=== PATIENT | female | born 1960 | race Caucasian/White ===

== ENCOUNTER 2016-11-10 07:09 | Day surgery (SDC) | payer OTHER ==
[~2016-11-10] VITALS: Ht 165.1 cm; Wt 84.3 kg
[~2016-11-10 07:09] MED LIST: ATEN25TA PO; FLUO10TA PO; GABA300C10 PO; HYDR12.53 PO; INSU100C5 SQ-INSULIN; INSU100V8 SQ; LIDO700A5 TD; LISI-170 PO; METH-356 PO; METH12VI2 SQ; OXYC5TAB3 PO; SENN1TAB7 PO; TRAZ50TA18 PO
[2016-11-10 07:36] VITALS: BP 167/91
[2016-11-10] MEDS ORDERED: SODIUM CHLORIDE 0.9% 1,000 ML IV SCH (07:38)
[2016-11-10] MEDS ORDERED: INSULIN REGULAR 100 UNITS/ML, 3ML VIAL SQ-INSULIN STA (08:05)
[2016-11-10] MEDS ORDERED: INSULIN SINGLE DOSE, ER SQ-INSULIN ONE (08:09)
[2016-11-10] MEDS ORDERED: LIDOCAINE 1%, 20ML ONE (08:19)
[2016-11-10] MEDS ORDERED: FENTANYL PF 100 MCG/2ML ONE (08:41)
[2016-11-10] MEDS ORDERED: FLUMAZENIL 0.1 MG/1 ML, 5ML ONE (08:42)
[2016-11-10] MEDS ORDERED: MIDAZOLAM 1 MG/ML, 5ML ONE (08:42)
[2016-11-10] MEDS ORDERED: NALOXONE 1 MG/ML, 2ML ONE (08:42)
== END 2016-11-10 12:00 ==
LOC: OUT 07:09
PROVIDERS: ATTEND Internal Medicine Nephrology
DX: E11.22 Type 2 diabetes mellitus with diabetic chronic kidney disease (principal); N18.9 Chronic kidney disease, unspecified; N28.89 Other specified disorders of kidney and ureter; I12.9 Hypertensive chronic kidney disease with stage 1 through stage 4 chronic kidney disease, or unspecified chronic kidney disease; Z88.0 Allergy status to penicillin; Z88.8 Allergy status to other drugs, medicaments and biological substances; E89.0 Postprocedural hypothyroidism; Z90.710 Acquired absence of both cervix and uterus; Z98.890 Other specified postprocedural states
CPT/HCPCS: 36415; 50200; 77012; 82962; 85610; 88300; 99156; J2250; J3010; J3490; J7030; 99157; J2310

== ENCOUNTER → 2017-07-20 | Outpatient (CLI) | payer OTHER | END | disposition home or self-care (01) | LOC: RAD 11:30 | PROVIDERS: ATTEND Specialist | DX: M25.511 Pain in right shoulder (principal) ==

== ENCOUNTER → 2020-06-15 | Outpatient (CLI) | payer MEDICARE ==
[~2020-06-15] MED LIST changes: +AMLO-150 PO; +CALC667T4 PO; +CARV-39 PO; +ERGO500017 PO; +GABA300C PO; +HYDR12.517 PO; -HYDR12.53 PO; +INSU100V13 SC; +LEVO50TA91 PO; -METH-356 PO; +METH10TA2 PO; +METO5TAB5 PO; -OXYC5TAB3 PO; +OXYC5TAB98 PO; +SENN-177 PO; -SENN1TAB7 PO; +TORS20TA2 PO; -TRAZ50TA18 PO; +TRAZ50TA66 PO
[2020-06-15 11:21] LABS: BASOPHILS % (AUTO) 0 % (0-1); EOSINOPHILS % (AUTO) 0 % (1-7); LYMPHOCYTES % (AUTO) 21 % (22-44); MEAN CORPUSCULAR HGB CONC 33.3 g/dL (32.4-35.8); MEAN PLATELET VOLUME 8.5 fL (7.4-10.4); MONOCYTES % (AUTO) 5 % (2-9); NEUTROPHILS % (AUTO) 74 % (42-75); PLATELET COUNT 318 x10^3/uL (130-400); RED BLOOD COUNT 4.01 x10^6/uL (3.82-5.3); RED CELL DISTRIBUTION WIDTH 14.2 % (9.6-15.2)
[2020-06-15 11:31] LABS: MD NO
[2020-06-15 11:32] LABS: ALBUMIN 3.4 g/dL (3.4-5.0); ANION GAP 4 mmol/L (5-15); CALCIUM 8.5 mg/dL (8.5-10.1); CHLORIDE 97 mmol/L (98-107)
[2020-06-15 11:34] LABS: INTERNATIONAL NORMALIZED RATIO 0.93 (0.93-1.1); PROTHROMBIN TIME 9.9 Seconds (9.6-11.5)
[2020-06-15 11:36] LABS: ALANINE AMINOTRANSFERASE 31 U/L (12-78); ALKALINE PHOSPHATASE 78 U/L (45-117); BILIRUBIN,TOTAL 0.4 mg/dL (0.2-1.0); CREATININE 3.44 mg/dL (0.55-1.02); TOTAL PROTEIN 7.1 g/dL (6.4-8.2)
== END | disposition home or self-care (01) ==
LOC: STAR 09:51
PROVIDERS: ATTEND Surgery
DX: Z01.818 Encounter for other preprocedural examination (principal); N18.6 End stage renal disease; I44.4 Left anterior fascicular block; Z20.822 Contact with and (suspected) exposure to COVID-19
CPT/HCPCS: 36415; 80053; 85025; 85610; 85730; 93005; U0003; U0005

== ENCOUNTER 2020-06-20 15:23 | Day surgery (SDC) | payer MEDICAID, MEDICARE ==
[~2020-06-20] VITALS: Ht 162.6 cm; Wt 79.5 kg
[~2020-06-20 15:23] MED LIST changes: +EPHEDRINE 50 MG/ML, 1ML IVPush PRN; +FENTANYL PF 100 MCG/2ML IV PRN; +LABETALOL 5MG/ML, 20ML IV PRN; +ONDANSETRON 2MG/ML, 2ML IVPush PRN; +OXYcodone 5 MG/5 ML ORAL.SOL UDC PO PRN; +PROMETHAZINE 25 MG/ML, 1ML IVPush PRN; +hydrALAzine 20 MG/ML, 1ML IV PRN
[2020-06-20] MEDS ORDERED: PROTAMINE SULFATE 10 MG/ML, 25ML ONE (15:37)
[2020-06-20] MEDS ORDERED: HEPARIN 1,000 UNITS/ML, 10ML ONE (15:37)
[2020-06-20] MEDS ORDERED: THROMBIN 20,000 UNIT VIAL TP ONE (15:37)
[2020-06-20] MEDS ORDERED: BUPIVACAINE/PF 0.25% ONE (15:37)
[2020-06-20] MEDS ORDERED: EPINEPHRINE 1 MG/ML, 1ML ONE (15:37)
[2020-06-20] MEDS ORDERED: PAPAVERINE 30 MG/ML, 2ML ONE (15:37)
[2020-06-20] MEDS ORDERED: LIDOCAINE 1%, 20ML ONE (15:38)
[2020-06-20 15:39] VITALS: BP 125/90
[2020-06-20] MEDS ORDERED: SODIUM CHLORIDE 0.9% 1,000 ML IV SCH (16:00)
[2020-06-20] MEDS ORDERED: ACETAMINOPHEN 500 MG TABLET PO ONE (16:00)
[2020-06-20] MEDS ORDERED: CHLORHEXIDINE 15 ML UDC PO ONE (16:00)
[2020-06-20] MEDS ORDERED: LIDOCAINE-MPF 1%, 2ML ONE (16:02)
[2020-06-20] MEDS ORDERED: LIDOCAINE-MPF 1%, 2ML INFIL ONE (16:30)
[2020-06-20] MEDS ORDERED: DEXTROSE 50%, 50ML SYRINGE IVPush STA (17:03)
[2020-06-20] MEDS ORDERED: DEXTROSE 50%, 50ML SYRINGE ONE (17:07)
[2020-06-20] MEDS ORDERED: MIDAZOLAM 1 MG/ML, 2ML ONE (18:07)
[2020-06-20] MEDS ORDERED: FENTANYL PF 100 MCG/2ML ONE ×2 (18:07→19:42)
[2020-06-20] MEDS ORDERED: DEXAMETHASONE 4 MG/ML, 1ML ONE (18:35)
[2020-06-20] MEDS ORDERED: ONDANSETRON 2MG/ML, 2ML ONE (18:35)
[2020-06-20] MEDS ORDERED: CEFAZOLIN 1,000 MG ONE (18:35)
[2020-06-20] MEDS ORDERED: SODIUM CHLORIDE 0.9% PF 10ML ONE (18:35)
[2020-06-20] MEDS ORDERED: PROPOFOL 10 MG/ML, 20ML ONE (18:35)
[2020-06-20] MEDS ORDERED: LIDOCAINE-MPF 2% ,5ML ONE (18:35)
[2020-06-20] MEDS ORDERED: EPHEDRINE 50 MG/ML, 1ML ONE (18:42)
[2020-06-20] MEDS ORDERED: HYDR-2214 PO (19:37)
[2020-06-20] MEDS ORDERED: OXYcodone 5 MG/5 ML ORAL.SOL UDC ONE (19:42)
[2020-06-20] MEDS ORDERED: hydrALAzine 20 MG/ML, 1ML ONE (19:52)
[2020-06-20] MEDS ORDERED: HYDROmorphone 1 MG/ML, 1ML INJ ONE (20:02)
[2020-06-20] MEDS: HYDROmorphone 1 MG/ML, 1ML INJ IVPush PRN ×2 (20:05→20:15)
== END 2020-06-20 22:30 | disposition home or self-care (01) ==
LOC: OR 15:23
PROVIDERS: ATTEND Surgery
DX: E11.22 Type 2 diabetes mellitus with diabetic chronic kidney disease (principal); I12.0 Hypertensive chronic kidney disease with stage 5 chronic kidney disease or end stage renal disease; N18.6 End stage renal disease; E03.9 Hypothyroidism, unspecified; Z79.4 Long term (current) use of insulin; Z79.890 Hormone replacement therapy; Z79.899 Other long term (current) drug therapy; Z88.8 Allergy status to other drugs, medicaments and biological substances; Z87.891 Personal history of nicotine dependence; Z88.0 Allergy status to penicillin; Z88.5 Allergy status to narcotic agent; Z99.2 Dependence on renal dialysis; Z98.890 Other specified postprocedural states
CPT/HCPCS: 36832; 82962; J0360; J0690; J1100; J1170; J1644; J2250; J2405; J2704; J2720; J3010; J0171; J2440

== ENCOUNTER 2020-10-06 10:44 | Emergency (ER) | payer MEDICARE ==
[~2020-10-06 10:44] MED LIST changes: -EPHEDRINE 50 MG/ML, 1ML IVPush PRN; -FENTANYL PF 100 MCG/2ML IV PRN; +HYDR-2214 PO; -LABETALOL 5MG/ML, 20ML IV PRN; -ONDANSETRON 2MG/ML, 2ML IVPush PRN; -OXYcodone 5 MG/5 ML ORAL.SOL UDC PO PRN; -PROMETHAZINE 25 MG/ML, 1ML IVPush PRN; -hydrALAzine 20 MG/ML, 1ML IV PRN
[2020-10-06 10:49] VITALS: BP 130/89
--- NOTE | 2020-10-06 11:29 | NUR ---
ERP TO THE BS
--- NOTE | 2020-10-06 11:58 | NUR ---
PT REPORTS DECREASE IN VISSION IN THE L EYE SINCE EXAM BY ERP ERP AWARE
== END 2020-10-06 13:12 ==
LOC: ED 13:05
DX: H53.132 Sudden visual loss, left eye (principal); H33.012 Retinal detachment with single break, left eye; R51.9 Headache, unspecified; E10.9 Type 1 diabetes mellitus without complications; I10 Essential (primary) hypertension; Z87.891 Personal history of nicotine dependence; Z90.710 Acquired absence of both cervix and uterus
CPT/HCPCS: 99284